=== PATIENT | male | born 1990 | race Two or more races ===

== ENCOUNTER 2018-05-30 10:47 | Day surgery (SDC) | payer BC ==
[~2018-05-30] VITALS: Ht 172.7 cm; Wt 104.3 kg
[2018-05-30] VITALS (13 sets, daily range): BP systolic 117–142; BP diastolic 75–85
--- NOTE | 2018-05-30 07:47 | Pre-Procedure Note/Attestation ---
Pre-Procedure Note/Attestation Complete Prior to Procedure Planned Procedure: right Procedure Narrative: knee arthroscopy, acl reconstruction, possible menisectomy Indications for Procedure Pre-Operative Diagnosis: right knee acl tear, possible meneiscus tear Attestation I attest that I discussed the nature of the procedure; its benefits; risks and complications; and alternatives (and the risks and benefits of such alternatives ), prior to the procedure, with the patient (or the patient's legal b2b sales representative). I attest that, if there was a reasonable possibility of needing a blood transfusion, the patient (or the patient's legal b2b sales representative) was given the [facility] standardized written summary, pursuant to the Doc Sirisha Blood Safety Act ([place] Health and Safety Code # 1645, as amended). I attest that I re-evaluated the patient just prior to the surgery and that there has been no change in the patient's H&P, except as documented below: Clarence White MD May 30, 2018 07:47
--- NOTE | 2018-05-30 07:48 | Operative Note - PDOC ---
Operative Note Operative Note Pre-op Diagnosis: right knee acl tear, possible meneiscus tear Procedure: see op report Post-op Diagnosis: same as pre-op plus Operative Findings: consistent w/pre-op dx studies Anesthesia: regional Specimen: none Complications: none Condition: stable Estimated Blood Loss: none Implant(s) used?: Yes Clarence White MD May 30, 2018 07:48
[~2018-05-30 10:47] MED LIST: D5 1/2NS 1,000 ML IV SCH; HYDROmorphone 1mg/ml Carpuject SUBQ PRN; Norco 5mg/325mg tab ORAL PRN; Tylenol #3 tab (300mg/30mg) ORAL PRN; ceFAZolin 1gm IVPB IVPB ONE; celeBREX 200mg Cap **SURGERY PATIENTS ONLY ORAL ONE; oxyCONTIN 20mg tab ORAL ONE
[2018-05-30] MEDS ORDERED: oxyCONTIN 20mg tab ORAL ONE (11:25)
[2018-05-30] MEDS ORDERED: celeBREX 200mg Cap **SURGERY PATIENTS ONLY ORAL ONE (11:25)
[2018-05-30] MEDS ORDERED: fentaNYL 100 mcg/2 mL IV ONE (12:42)
[2018-05-30] MEDS ORDERED: Midazolam 2mg/2ml Inj ONE (12:42)
[2018-05-30] MEDS ORDERED: Kenalog-40 1ml Vial ONE (12:58)
[2018-05-30] MEDS ORDERED: Ketorolac 30mg Inj ONE ×2 (12:59→15:28)
[2018-05-30] MEDS ORDERED: Bupivacaine 0.5% Inj 30 ml vial INJ ONE (12:59)
[2018-05-30] MEDS ORDERED: Bacitracin 50000 Units Vial ONE (12:59)
[2018-05-30] MEDS ORDERED: Bupivacaine w/Epi 0.25% 30ml Vial INJ ONE (12:59)
[2018-05-30] MEDS ORDERED: NeoSporin Gu Irrig 1ml Amp IRRIG ONE (12:59)
[2018-05-30] MEDS ORDERED: Lidocaine 1% 10mg/ml/Epi 0.005mg/ml 30ml vial INJ ONE (12:59)
[2018-05-30] MEDS ORDERED: LR 1000ml ONE (13:00)
[2018-05-30] MEDS ORDERED: NS Irrig 4000ml IRRIG ONE (13:00)
[2018-05-30] MEDS ORDERED: EPINEPHrine 1mg/1ml Amp ONE (13:02)
--- NOTE | 2018-05-30 14:08 | Anethesia Preoperative Eval ---
Anesthesia Pre-op PMH/ROS General Date of Evaluation: May 30, 2018 Time of Evaluation: 13:00 Anesthesiologist: hetal ASA Score: ASA 2 Mallampati Score Class I : Soft palate, uvula, fauces, pillars visible Class II: Soft palate, uvula, fauces visible Class III: Soft palate, base of uvula visible Class IV: Only hard plate visible Mallampati Classification: Class II Surgeon: carlyn Diagnosis: ACL tear Surgical Procedure: Right ACL repair Anesthesia History: none Family History: no anesthesia problems Allergies: Coded Allergies: BEE POLLEN (Verified Allergy, Severe, 05/30/18) ANAPHYLAXIS Medications: see eMAR Patient NPO?: Yes NPO Date: May 29, 2018 NPO Time: 23:59 Past Medical History Cardiovascular: Denies: HTN, CAD, MA, valve dz, arrhythmia, other Pulmonary: Denies: asthma, COPD, KRISHNA, other Gastrointestinal/Genitourinary: Denies: GERD, CRI, ESRD, other Neurologic/Psychiatric: Denies: dementia, CVA, depression/anxiety, TIA, other Endocrine: Denies: DM, hypothyroidism, steroids, other HEENT: Denies: cataract (L), cataract (R), glaucoma, HOP[place] (L), HOPLAND (R), other Musculoskeletal/Integumentary: Denies: OA, RA, DJD, DDD, edema, other Other: obesity PSxH Narrative: none Anesthesia Pre-op Phys. Exam Physician Exam Last Vital Signs Date Time Temp Pulse Resp B/P (MAP) Pulse Ox O2 Delivery O2 Flow Rate FiO2 05/30/18 11:22 97.7 90 18 125/76 96 Room Air Constitutional: NAD Neurologic: CN 2-12 intact Cardiovascular: RRR Respiratory: CTA Gastrointestinal: S/NT/ND Airway Exam Mallampati Classification 2 Mallampati Score: Class II MO: full ROM: full Dentures: no upper, no lower Anesthesia Pre-op A/P Studies Pre-op Studies: EKG - sr Risk Assessment & Plan Plan: general plus adductor canal block Status Change Before Surgery: No Pre-Antibiotics Drug: ancef Given Within 1 Hr of Incision: Yes Time Given: 13:20 Philly Blakely CRNA May 30, 2018 14:08
[2018-05-30] MEDS ORDERED: Metoclopramide 10mg/2ml Inj IVP PRN (14:15)
[2018-05-30] MEDS ORDERED: fentaNYL 100 mcg/2 mL IV PRN (14:15)
[2018-05-30] MEDS ORDERED: Acetaminophen (Non formulary) 100 ML IV ONE (15:15)
[2018-05-30] MEDS ORDERED: ePHEDrine 50mg/ml Inj ONE (15:28)
[2018-05-30] MEDS ORDERED: Lidocaine 1% MPF 10mg/ml 5ml ONE (15:28)
[2018-05-30] MEDS ORDERED: Propofol 200mg/20ml IV ONE (15:28)
[2018-05-30] MEDS ORDERED: Ropivacaine 5mg/ml Vial 30ml INJ ONE (15:29)
[2018-05-30] MEDS ORDERED: Morphine Sulfate PF 10 ML ONE (15:31)
--- NOTE | 2018-05-30 16:11 | Immediate Post-Op Evaluation ---
Immediate Post-Op Evalulation Immediate Post-Op Evalulation Procedure: right acl repair Date of Evaluation: May 30, 2018 Time of Evaluation: 16:05 IV Fluids: 1000 Blood Pressure Systolic: 135 Blood Pressure Diastolic: 82 Pulse Rate: 96 Respiratory Rate: 14 O2 Sat by Pulse Oximetry: 99 Nausea: No Vomiting: No Complications none Patient Status: awake, reacts, patent Hydration Status: adequate Drug: ancef Given Within 1 Hr of Incision: Yes Time Given: 13:20 Philly Blakely CRNA May 30, 2018 16:11
[2018-05-30] MEDS ORDERED: Bupivacaine w/Epi 0.5% 30ml Vial INJ ONE (16:16)
[2018-05-30] MEDS ORDERED: Tylenol #3 tab (300mg/30mg) ORAL PRN (17:15)
--- NOTE | 2018-05-30 22:30 | Operative Note - Dictated ---
DATE OF OPERATION: 05/30/2018 PREOPERATIVE DIAGNOSES: 1. Right knee ACL tear. 2. Right knee lateral meniscus tear. POSTOPERATIVE DIAGNOSES: 1. Right knee ACL tear. 2. Right knee lateral meniscus tear. PROCEDURES: 1. Right knee ACL reconstruction with tibialis anterior allograft. 2. Right knee lateral meniscus repair. 3. Synovectomy of the medial lateral patellofemoral compartment. SURGEON: Clarence White M.D. ANESTHESIA: Femoral with general. INDICATION FOR PROCEDURE: The patient is a pleasant gentleman, who sustained a direct injury to his right knee. Subsequently, he had a MRI, which showed an ACL tear with possible meniscal tear. Given that these have been active, he elected to undergo right anterior cruciate ligament reconstruction with possible lateral meniscectomy versus repair. Risks, limitations, expectations, and complications of procedure were discussed in detail. All questions addressed. DESCRIPTION OF PROCEDURE: After informed consent was obtained, the patient was brought to the operating room and placed under general anesthesia. Tourniquet was applied to the right proximal thigh. Right leg was prepped and draped in a sterile manner. Time-out was performed. Examination under anesthesia showed positive Nisha test and positive reverse pivot shift test. The tibialis anterior allograft, which measured 9.5 mm diameter was fashioned and tensioned on the back table. Inferolateral stab incision was then made. Trocar was introduced into the knee joint. The patellofemoral compartment was free from the meniscal chondral damage. Medial compartment was entered and free from the meniscal chondral damage. The ACL insertion along the medial wall of the femoral condyle was significantly detached. There is some portion of the posterior medial band that was still attached. Given that the large percent of the anterior cruciate ligament seemed to be compromised, the ACL was debrided down to its bony insertion. Once that was done, the lateral compartment was entered. There was a radial tear extending the entering into the popliteus tendon. Given the nature of the tear, it was felt that we have to take out the whole lateral meniscus. Therefore, given that he is 28, attempt to salvage the meniscus was attempted. Arthroscopic meniscal implant was then placed securing the anterior margin of the tear into the capsule. It was nice and secured. There was no gross instability or subluxation. At this point, the femoral and tibial tunnels were prepared. The tibialis anterior allograft was then passed through the tibial tunnel, intercondylar notch and lateral compartment. The knee was then fashioned and tibial interference screw was then placed. Once that was done, the instruments were removed. Portal sites were closed with 3-0 Monocryl sutures. Compression dressing was applied. The patient was awoken and taken to recovery room with stable vital signs. ESTIMATED BLOOD LOSS: None. COMPLICATIONS: None. SPECIMENS: None. IMPLANTS: Include a tibialis anterior allograft, Biomet ToggleLoc suture relay, and a 10 x 35 distal interference screw. Clarence White M.D. DR: FREDIS JOB#: [id number] CC: BARBARA
[2018-06-04 12:27] VITALS: BP 127/86
--- NOTE | 2018-06-04 12:27 | 48 Hour Post Anesthesia Eval ---
Post Anesthesia Evaluation Procedure: right acl repair Date of Evaluation: Jun 04, 2018 Time of Evaluation: 12:27 Blood Pressure Systolic: 127 0: 86 Pulse Rate: 81 Respiratory Rate: 14 O2 Sat by Pulse Oximetry: 99 Airway: patent Nausea: No Vomiting: No Pain Intensity: 3 Hydration Status: adequate Cardiopulmonary Status: stable Mental Status/LOC: patient returned to baseline Post-Anesthesia Complications: none Follow-up care needed: N/A Philly Blakely CRNA Jun 04, 2018 12:27
== END 2018-05-30 18:20 | disposition home or self-care (01) ==
LOC: SUR 10:47
DX: S83.511A Sprain of anterior cruciate ligament of right knee, initial encounter (principal); M23.200 Derangement of unspecified lateral meniscus due to old tear or injury, right knee
CPT/HCPCS: 29882; 29888; C1713; J0171; J0690; J1885; J2250; J2274; J2405; J2704; J2795; J3010; 94003; 94150